=== PATIENT | female | born 1980 | race American Indian/Alaskan Native ===

== ENCOUNTER 2018-04-22 13:32 | Outpatient (CLI) | payer SELFPAY ==
[2018-04-22 17:53] LABS: Basophils % (Auto) 0.6 % (0.0-1.8); Eosinophils # (Auto) 0.1 K/mm3 (0.0-0.4); Eosinophils % (Auto) 1.3 % (0.0-4.3); Hematocrit 31.2 % (30.3-42.9); Hemoglobin 10.4 gm/dl (10.1-14.3); Lymphocytes # (Auto) 1.8 K/mm3 (1.2-5.4); Lymphocytes % (Auto) 33.3 % (13.4-35.0); Mean Corpuscular HGB Conc 33 % (30-34); Mean Corpuscular Hemoglobin 27 pg (28-32); Mean Corpuscular Volume 81 fl (79-97); Monocytes # (Auto) 0.3 K/mm3 (0.0-0.8); Monocytes % (Auto) 6.4 % (0.0-7.3); Platelet Count 195 K/mm3 (140-440); Red Blood Count 3.86 M/mm3 (3.65-5.03); Red Cell Distribution Width 16.3 % (13.2-15.2)
[2018-04-22 19:13] LABS: Bacteria,Urine 2+ /HPF (Negative); Bilirubin,Urine NEG (Negative); Blood,Urine SM (Negative); Color,Urine Amber (Yellow); Mucus,Urine 1+ /HPF
[2018-04-22 19:42] LABS: Amphetamine Screen,Urine PRESUMPTIVE NEGATIVE; Benzodiazepines Screen,Urine PRESUMPTIVE NEGATIVE; Cannabinoid Screen,Urine PRESUMPTIVE NEGATIVE; Cocaine Screen,Urine PRESUMPTIVE NEGATIVE; Methadone Screen,Urine PRESUMPTIVE NEGATIVE; Opiate Screen,Urine PRESUMPTIVE NEGATIVE
--- NOTE | 2018-04-22 20:14 | Ultrasound Report ---
FINAL REPORT PROCEDURE: US OB BPP WO NON-STRESS TECHNIQUE: Sonographic evaluation for breathing, movement, tone, and amniotic fluid volume was performed. CPT 72492 HISTORY: well being COMPARISON: No prior studies are available for comparison. FINDINGS: Single intrauterine gestation with heart rate of 150 beats per minute Amniotic fluid volume: Normal-score 2. At least one vertical pocket > 2 cm or more in vertical axis. breathing: Normal-score 2. movement: Normal-score 2. tone: Normal. Score: 8 of 8. IMPRESSION: Normal biophysical profile.
--- NOTE | 2018-04-22 20:20 | Ultrasound Report ---
FINAL REPORT PROCEDURE: US OB > = 14 WEEKS FETUS TECHNIQUE: Real-time transabdominal sonography of the uterus, placenta, amniotic fluid, adnexa, and fetus was performed with image documentation. Measurements were obtained to determine age/size. M-mode Doppler was used to document heartbeat. CPT 52335 HISTORY: well being COMPARISON: No prior studies are available for comparison. FINDINGS: ADDITIONAL GESTATION: None. GENERAL: IUP: Single living intrauterine . Position: Cephalic Placental position: Fundal, without previa. Amniotic fluid volume: Normal. MATERNAL: Uterus: Within normal limits. Cervical length: 3.3 cm. Internal Os: Closed. FETUS: Heart rate and rhythm: 150 beats per minute regular MEASUREMENTS: BPD: 8.7 centimeters corresponding to 35 weeks and 1 day HC: 31.4 centimeters corresponding to 35 weeks and 2 days AC: 31.3 centimeters corresponding to 35 weeks and 2 days FL: 6.8 centimeters corresponding to 34 weeks and 5 days Mean Gestational Age (composite criteria): 35 weeks and 1 day HC/AC ratio: 1.0 Cephalic index is 83.8 Estimated Weight: 2597 grams. Estimated Due Date (earliest scan): 05/26/2018 IMPRESSION: Single intrauterine gestation at 35 weeks and 1 day. Estimated due date: 05/26/2018. Cephalic index is 83.8 which is just outside the normal limits
== END 2018-04-22 20:21 | disposition home or self-care (01) ==
LOC: TRG 13:32
PROVIDERS: ATTEND Obstetrics & Gynecology
DX: O09.523 Supervision of elderly multigravida, third trimester (principal); O47.1 False labor at or after 37 completed weeks of gestation; Z3A.39 39 weeks gestation of pregnancy
CPT/HCPCS: 36415; 59025; 76805; 76819; 80307; 81001; 85025; 86592; 86706; 86762; 87806

== ENCOUNTER 2018-07-29 10:14 | Emergency (ER) | payer MEDICAID, OTHER ==
[2018-07-29 10:43] VITALS: BP 134/85
--- NOTE | 2018-07-29 11:21 | Emergency Department Report ---
Minor Respiratory - HPI Chief Complaint: Upper Respiratory Infection Stated Complaint: COLD SYMPTOMS Time Seen by Provider: 07/29/18 11:09 Duration: 3 Days Pain Location: Other (toothache upper and lower mouth) Severity: mild (4/10) Minor Respiratory: Yes Rhinorrhea (nasal congestion), Yes Able to Tolerate Fluids, Yes Cough (dry cough), No Sore Throat (toothache), No Ear Pain, No Sick Contacts, No Hemoptysis, No Chest Pain, No Shortness of Breath, No Fever Other History: This is a 38-year-old female here reports cold symptoms 3 days and nonproductive cough. She denies any fever or body aches or chills. She is also complaining of toothache to upper and lower mouth. Denies any nausea or vomiting. Pain is 4/10 and achy worse with eating and and no alleviating factors. Denies any nausea or vomiting or chest pain. No medication taken prior to coming to the emergency room ED Review of Systems ROS: Stated complaint: COLD SYMPTOMS Other details as noted in HPI Constitutional: denies: chills, fever Eyes: denies: eye pain, eye discharge, vision change ENT: congestion. denies: ear pain, throat pain, epistaxis Respiratory: cough. denies: shortness of breath, SOB with exertion, SOB at rest , stridor, wheezing Cardiovascular: denies: chest pain, palpitations, edema, syncope Endocrine: no symptoms reported Gastrointestinal: denies: abdominal pain, nausea, vomiting, diarrhea Genitourinary: denies: urgency, dysuria, discharge Musculoskeletal: myalgia (body ache). denies: back pain, joint swelling, arthralgia Skin: denies: rash, lesions Neurological: denies: headache Hematological/Lymphatic: easy bleeding ED Past Medical Hx - Past Medical History Previous Medical History?: No Hx Hypertension: No Hx Diabetes: No Hx Deep Vein Thrombosis: No Hx Renal Disease: No Hx Sickle Cell Disease: No Hx Seizures: No Hx Asthma: No Hx HIV: No - Surgical History Past Surgical History?: Yes Additional Surgical History: D&C - Family History Family history: hypertension - Social History Smoking Status: Never Smoker Substance Use Type: None - Medications Home Medications: Home Medications Medication Instructions Recorded Confirmed Last Taken Type Fluticasone [Flonase] 1 spray NS QDAY 14 Days #1 bottle 08/30/18 Unknown Rx Ibuprofen [Motrin] 600 mg PO Q8H PRN #12 tablet 07/29/18 Unknown Rx Ondansetron [Zofran Odt] 4 mg PO Q6H PRN #20 tab.rapdis 07/29/18 Unknown Rx guaiFENesin/CODEINE [Robitussin AC] 10 ml PO QHS PRN #50 oral.liqd 07/29/18 Unknown Rx Minor Respiratory Exam - Exam General: Vital signs noted. No distress. Alert and acting appropriately. This is a 38-year-old female well-nourished well-developed in no acute distress. She is nontoxic in appearance HEENT: Yes Moist Mucous Membranes, Yes Rhinorrhea (nasal mucosa pale and boggy with clear drainage), No Pharyngeal Erythema, No Pharyngeal Exudates, No Conjuctival Injection, No Frontal Tenderness, No Maxillary Tenderness Ear: Neither TM Bulge ( bilateral TM congested), Neither TM Erythema, Neither EAC Pain, Neither EAC Discharge Neck: Yes Supple (full range of motion, nontender to palpate), No Adenopathy Lungs: Yes Good Air Exchange (CTAb), Yes Cough (dry cough), No Wheezes, No Ronchi, No Stridor, No Labored Respirations, No Retractions, No Use of Accessory Muscles, No Other Abnormal Lung Sounds Heart: Yes Regular (S1, S2. Regular rate and rhythm), No Murmur Abdomen: Yes Normal Bowel Sounds (in all quadrants), No Tenderness (NTTP), No Peritoneal Signs Skin: No Rash, No Edema Neurologic: Alert and oriented 3 and normal gait Musculoskeletal: Unremarkable. No cce. + 2 pulses in all extremities, no neurovascular compromise ED Course Vital Signs 07/29/18 10:40 Temperature 98.8 F Pulse Rate 74 Respiratory 18 Rate Blood Pressure 134/85 O2 Sat by Pulse 97 Oximetry - Reevaluation(s) Reevaluation #1: 07/29/18 13:47 Patient is stable throughout ED stay ED Medical Decision Making - Medical Decision Making This is a 38-year-old female here report toothache and cold symptoms in here to be evaluated. She was seen and evaluated by myself and her physical exam is normal except for mouth with a few dental caries otherwise normal. Bilateral TM congested without erythema and bilateral EAC normal exam. Bilateral nasal mucosa pale and boggy with clear drainage and bilateral sinuses are nontender to palpate. Patient with clear lung vásquez without any use of accessory muscles, neck exam is normal and she has a dry cough. I discussed the patient that she has upper respiratory infection with cough and congestion which is usually viral in nature and I will treat her with cough medicine to take at night guaifenesin and codeine, the congestion to include Zyrtec and Flonase and Motrin for her toothache and dental caries. I discussed the patient's that she does not have a primary care physician she needs follow-up at [facility] in 5 days follow-up upper respiratory infection along with follow-up at [facility] to manage her toothache. She voiced understanding and discharged home in stable condition. Patient given prescription for guaifenesin with codeine for cough, Zyrtec, Flonase and Motrin. Critical care attestation.: If time is entered above; I have spent that time in minutes in the direct care of this critically ill patient, excluding procedure time. ED Disposition Clinical Impression: Upper respiratory infection with cough and congestion, Tooth ache Disposition: TO HOME OR SELFCARE Is pt being admited?: No Does the pt Need Aspirin: No Condition: Stable Instructions: Upper Respiratory Infection (ED), Acute Cough (ED), Toothache (ED ), Dental Caries (ED) Additional Instructions: Please take Zyrtec and Flonase and this will help with your nasal congestion and ear congestion. Take guaifenesin with codeine at nighttime and please do not drive or operate heavy machinery while taking this medication as it causes drowsiness. This will help your cough. Increase your fluid intake and take extra vitamin C to posterior immune system With your primary care physician in 5 days and if he do not have a primary care physician follow up at [facility] If his situation worsens, please return to the emergency room NATE Prescriptions: guaiFENesin/CODEINE [Robitussin AC] 10 ml PO QHS PRN #50 oral.liqd PRN Reason: Cough Fluticasone [Flonase] 1 spray NS QDAY 14 Days #1 bottle Ondansetron [Zofran Odt] 4 mg PO Q6H PRN #20 tab.rapdis PRN Reason: Nausea And Vomiting Referrals: [facility] [Outside] - 08/03/18 PRIMARY CAREMD [Primary Care Provider] - 08/03/18 [facility] [Outside] - 08/03/18 Forms: Work/School Release Form(ED)
== END 2018-07-29 13:00 | disposition home or self-care (01) ==
LOC: ED 10:14
DX: J06.9 Acute upper respiratory infection, unspecified (principal); K08.89 Other specified disorders of teeth and supporting structures
CPT/HCPCS: 99282

== ENCOUNTER 2018-08-18 19:08 | Emergency (ER) | payer SELFPAY | END 2018-08-18 19:10 | disposition left against medical advice (07) | LOC: ED 19:08 | DX: R05 Cough (principal); Z53.21 Procedure and treatment not carried out due to patient leaving prior to being seen by health care provider ==